=== PATIENT | female | born 1955 | race Caucasian/White ===

== ENCOUNTER 2018-07-24 11:05 | Emergency (ER) | payer OTHER ==
[~2018-07-24] VITALS: Wt 90.7 kg
[~2018-07-24 11:05] MED LIST: BACTRIM DS 8001 TA1 PO; CELEXA40 MG PO; GLYCOLAX17 GM/DOSE PO; KLONOPIN1 MG PO; MISOPROSTOL100 MCG PO; MOBIC15 MG PO; MOTRIN800 MG PO; PERCOCET 325 MG1 TA2 PO; PERCOCET 325 MG1 TA3 PO; PRAVACHOL80 M1 GT; PROPRANOLOL10 MG PO; PROZAC20 MG PO; PYRIDIUM200 MG PO; TRAMADOL50 MG PO
[2018-07-24] MEDS ORDERED: PERCOCET 5-3251 EACH PO (11:45)
[2018-07-25] MEDS ORDERED: TRAMADOL HCL50 MG PO (01:02)
[2018-07-25] MEDS ORDERED: ARIPIPRAZOLE10 MG PO (01:03)
[2018-07-25] MEDS ORDERED: Carafate1 GM PO (01:03)
[2018-07-25] MEDS ORDERED: BUSPIRONE HCL10 MG PO (01:04)
[2018-07-25] MEDS ORDERED: PAROXETINE HCL30 MG PO (01:05)
== END 2018-07-24 11:55 | disposition home or self-care (01) ==
LOC: ED 11:05
DX: G89.29 Other chronic pain (principal); R25.1 Tremor, unspecified; R19.7 Diarrhea, unspecified; I10 Essential (primary) hypertension; M54.5 Low back pain; Z88.8 Allergy status to other drugs, medicaments and biological substances; Z79.899 Other long term (current) drug therapy; Z90.49 Acquired absence of other specified parts of digestive tract; Z76.0 Encounter for issue of repeat prescription

== ENCOUNTER 2018-07-24 23:49 | Emergency (ER) | payer OTHER ==
[~2018-07-24] VITALS: Ht 170.1 cm; Wt 92.6 kg
[~2018-07-24 23:49] MED LIST changes: +PERCOCET 5-3251 EACH PO
[2018-07-25 00:34] LABS: BASO % 0.2 % (0.0-1.0); HEMATOCRIT 35.8 % (37.0-47.0); HEMOGLOBIN 12.3 g/dl (12.0-16.0); LYMPH # 1.1 10*3/uL (1.3-4.4); LYMPH % 9.4 % (27.0-41.0); MEAN CELL VOLUME 87.5 fl (81.0-99.0); MEAN CORPUSCULAR HGB 30.1 pg (27.0-31.0); MEAN CORPUSCULAR HGB CONC 34.4 g/dl (33.0-37.0); MEAN PLATELET VOLUME 10.6 fl (9.6-12.3); MONO # 0.9 10*3/uL (0.1-1.0); MONO % 7.4 % (3.0-9.0); NEUT # 9.9 10*3/uL (2.3-7.9); NEUT % 82.7 % (47.0-73.0); PLATELET COUNT AUTOMATED 169 10*3/uL (130-400); RED BLOOD COUNT 4.09 10*6/uL (4.10-5.10); RED CELL DISTRI WIDTH 13.1 % (0-14.5)
[2018-07-25 00:56] LABS: ALBUMIN 3.5 gm/dl (3.1-4.5); ALKALINE PHOSPHATASE 62 U/L (45-117); BUN 12 mg/dl (7-24); CHLORIDE 102 mmol/L (98-107); CREATININE 0.79 mg/dL (0.55-1.02); POTASSIUM 3.1 mmol/L (3.5-5.1); SGOT/AST 22 IU/L (3-35); SGPT/ALT 26 U/L (12-78); SODIUM 133 mmol/L (136-145); TOTAL PROTEIN 7.5 gm/dL (6.4-8.2)
[2018-07-25] MEDS ORDERED: TRAMADOL HCL50 MG PO (01:02)
[2018-07-25] MEDS ORDERED: Carafate1 GM PO (01:03)
[2018-07-25] MEDS ORDERED: ARIPIPRAZOLE10 MG PO (01:03)
[2018-07-25] MEDS ORDERED: BUSPIRONE HCL10 MG PO (01:04)
[2018-07-25] MEDS ORDERED: PAROXETINE HCL30 MG PO (01:05)
[2018-07-25 01:19] LABS: ACETAMINOPHEN (TYLENOL) < 5.0 ug/ml (10-30); ETHYL ALCOHOL < 3.0 mg/dl (<3)
[2018-07-25 01:27] LABS: BILIRUBIN NEGATIVE (NEGATIVE); BLOOD 1+ (NEGATIVE); CLARITY SL CLOUDY (CLEAR); COLOR YELLOW (YELLOW); GLUCOSE NEGATIVE (NEGATIVE); KETONE NEGATIVE (NEGATIVE); LEUKO ESTERASE 1+ (NEGATIVE); NITRITE NEGATIVE (NEGATIVE); UROBILINOGEN 0.2 E.U./dl (0.2-1.0)
[2018-07-25 01:36] LABS: BACTERIA 2+; MUCOUS TRACE; URINE AMPHETAMINES < 1000 (1000ng/ml); URINE BARBITURATES < 200 (200ng/ml); URINE BENZODIAZEPINES < 200 (200ng/ml); URINE CANNABINOIDS (THC) < 50 (50ng/ml); URINE COCAINE < 300 (300ng/ml); URINE METHADONE < 300 (300ng/ml); URINE OPIATES < 300 (300ng/ml)
[2018-07-25 01:41] LABS: URINE PHENCYCLIDINE < 25 (25ng/ml)
== END 2018-07-25 10:15 | disposition home or self-care (01) ==
LOC: ED 23:49
PROVIDERS: Student in an Organized Health Care Education/Training Program
DX: F32.9 Major depressive disorder, single episode, unspecified (principal); G89.29 Other chronic pain; M54.5 Low back pain; F11.20 Opioid dependence, uncomplicated; E78.5 Hyperlipidemia, unspecified; G43.909 Migraine, unspecified, not intractable, without status migrainosus; I16.0 Hypertensive urgency; Z79.899 Other long term (current) drug therapy; Z88.8 Allergy status to other drugs, medicaments and biological substances